=== PATIENT | female | born 1945 | race Caucasian/White ===

== ENCOUNTER → 2016-05-12 | Day surgery (SDC) | payer MEDICARE, OTHER ==
[~2016-05-12] MED LIST: ADVAIR 250-501 EACH INH; ALBUTEROL MININEB NEB; ALEVE220 M1 PO; AMBIEN10 MG PO; ASPIRIN EC650 MG PO; ASPIRIN EC81 M1 PO; ASPIRIN81 M1 PO; ASPIRINEC PO; BENADRYL PO; BENADRYL25 M3 PO; CALCIUM + VITA1 EACH PO; CINNAMON ALPHA1 EACH PO; CO Q-1010 MG PO; COQ-1010 MG PO; DIABETA5 M1 PO; DIPHENHYDRAMINE50 M1 PO; FLOMAX0.4 M1 PO; FLUOXETINE HCL40 MG PO; FORTAMET1000 MG/B1 PO; GARCINIA CAMBO1 EACH PO; GLUCOPHAGE500 M1; GLUCOPHAGE500 M1 PO; GLUCOSAMINE & C1 CAP PO; GLUCOSAMINE-CHO1 CA1 PO; GLYBURIDE PO; GLYNASE PO; GREEN COFFEE B400 MG PO; JANUVIA PO; LANTUS100 U/ML SUBQ; LOZOL PO; MAG GLYCINATE100 MG PO; MELATONIN3 MG PO; MELOXICAM15 MG PO; METFORMIN PO; MICRONASE5 M2 PO; MOBIC15 MG PO; MULTI VITAMIN1 EACH PO; NEURONTIN300 MG PO; OSTEO BI-FLEX1 EAC1 PO; OSTEO BI-FLEX1 EAC2 PO; PRAVACHOL20 MG PO; PRINIVIL40 MG PO; PROTONIX PO; PROZAC40 M1 PO; PROZAC40 MG PO; SINGULAIR PO; SINGULAIR4 MG/PACKE PO; TRAMADOL HCL50 M1 PO; TRAMADOL HCL50 M2 PO; VITAMIN D34000 UNIT PO; VITAMIN D400 UNI1 PO; ZESTRIL40 MG PO
--- NOTE | ~2016-05-12 | OR ---
Unit #: [id number] #: [id number] Patient: HALEY COVARRUBIAS [id number] [address] [address] [id number] O MR#: [id number] NAME: HALEY COVARRUBIAS ROOM: Date of Procedure: 05/12/2016 Admission Date: 05/12/2016 Surgeon: Jorge Vega M.D. : 1945 Attending Physician: Jorge Vega M.D. Primary Care Physician: Generic Doctor Not In System OPERATIVE REPORT REFERRING PHYSICIAN Primary care. SERVICE PROVIDED 1. Therapeutic lumbar epidural injection. 2. Fluoroscopy of the lumbosacral spine. 3. Intravenous sedation to facilitate the above. PREOPERATIVE DIAGNOSES 1. Degenerative disk disease, L4-5, with left lumbar radiculopathy. 2. Hypertension, asthma, non-insulin dependent diabetes mellitus, depression and anxiety disorder. POSTOPERATIVE DIAGNOSES 1. Degenerative disk disease, L4-5, with left lumbar radiculopathy. 2. Hypertension, asthma, non-insulin dependent diabetes mellitus, depression and anxiety disorder. PROCEDURE PERFORMED Lumbar epidural steroid injection using fluoroscopy. FOLLOW-UP/REVIEW OF SYSTEMS/PHYSICAL EXAM Ms. Covarrubias is here for a lumbar epidural steroid injection. She has responded well to interventional treatment. She continues to have left lumbar radiculopathy. She has no medical contraindication to the procedure that was performed as follows with her consent. INDICATIONS/COMMENTS AND CONSENTS/STATEMENT OF MEDICAL NECESSITY The patient's current medications, allergies and vital signs are documented in the nursing assessment. The risks and benefits of the intervention were discussed with the patient in detail including but not limited to infection, bleeding, meningitis, steroid induced side-effects, nerve damage, paralysis, spinal headaches, neuritis, persistent or worsening pain. The patient wishes to proceed. A separate pain assessment is also in the chart. I have reviewed all of this and have reviewed this with the patient. A current History and Physical is also attached. DESCRIPTION OF PROCEDURE 1. Monitoring and positioning: After appropriate discussions it was decided to perform the procedure under local anesthesia with supplemental intravenous sedation. Vital signs were monitored in pre, intra and post-procedure phase. Monitoring included EKG, non-invasive BP, pulse Unit #: [id number] #: [id number] Patient: HALEY COVARRUBIAS oximetry, and temperature. These are documented and were stable. Appropriate supports and restraints were used. 2. Sedation: A total of 2 mg of Versed and 100 mcg of fentanyl was administered. 3. Lumbar epidural injection/fluoroscopy: The patient was placed in the sitting position. Positional supports were used. Fluoroscopy of the lumbar spine was performed. Sterile prep and drape with carried out with ChloraPrep. Local anesthesia was with infiltrated with 3 mL of preservative-free 1% Lidocaine. Once anesthesia was established, a 22-gauge Tuohy epidural needle was inserted at the L4-5 level epidurally, using a left interlaminar approach, loss of resistance to saline technique, and with fluoroscopic guidance. Needle placement tested negative for subarachnoid and intravascular placement. An intra-operative epidurogram was now performed. Intra-operative epidurogram: 1 mL of Isovue-M300 was injected through the epidural needle under continuous fluoroscopy. The dye was seen to spread to L4 in the cephalad direction, and to L5 in the caudal direction. The spread of the dye was uniform. 1 mL of preservative-free normal saline was used to irrigate the dye off the epidural space. There was no intravascular or intrathecal spread of contrast. A lumbar epidural steroid injection was now performed using a total of 3 mL of solution containing 0.2% bupivacaine in 2 mL followed by 80 mg of Depo-Medrol in 2 mL. Fluoroscopic imaging confirmed spread of medication. The needle was then removed intact. The skin was washed off. Prep solution and dressings were applied at the injection site. The patient tolerated the procedure well. The patient was then observed in the recovery area for 30 minutes. The patient will be monitored for her blood sugars closely over the next few days and titrate her medications accordingly. RESULTS The patient had a consistent block with the dose of local anesthetic used. Pain relief was satisfactory. There were no complications or side effects. DISCHARGE CONDITION 1. Patient was discharged in satisfactory condition accompanied by a family member. 2. Post-procedure instructions were given. PLAN The patient will return to the clinic in 2 months for re-assessment and office visit. I thank the patient's referring physician for the opportunity to participate in the care of this patient. Please do not hesitate to call for any questions regarding this patient's pain management. Dictated by... Sharmaine Muhammad TD: 05/13/2016 02:45 Unit #: [id number] #: [id number] Patient: HALEY COVARRUBIAS Bernice JOB #: [id number] OPERATIVE REPORT Page 1 of 1 X Jorge Vega MD PROCEDURE OPERATIVE NOTE
== END | disposition home or self-care (01) ==
LOC: CCSC 07:18
PROVIDERS: Anesthesiology
PROC: 3E0R3BZ Introduction of Anesthetic Agent into Spinal Canal, Percutaneous Approach (ICD-10-PCS; 2016-05-12)
PROC: 3E0R33Z Introduction of Anti-inflammatory into Spinal Canal, Percutaneous Approach (ICD-10-PCS; principal; 2016-05-12 08:00)
DX: M51.16 Intervertebral disc disorders with radiculopathy, lumbar region (principal); M47.26 Other spondylosis with radiculopathy, lumbar region; I10 Essential (primary) hypertension; J45.909 Unspecified asthma, uncomplicated; E11.9 Type 2 diabetes mellitus without complications; Z79.84 Long term (current) use of oral hypoglycemic drugs; F32.9 Major depressive disorder, single episode, unspecified; F41.9 Anxiety disorder, unspecified; K21.9 Gastro-esophageal reflux disease without esophagitis; Z79.899 Other long term (current) drug therapy; L30.9 Dermatitis, unspecified; Z87.442 Personal history of urinary calculi; Z90.710 Acquired absence of both cervix and uterus; Z98.890 Other specified postprocedural states; Z88.0 Allergy status to penicillin; Z88.5 Allergy status to narcotic agent; Z88.8 Allergy status to other drugs, medicaments and biological substances
CPT/HCPCS: 82947; J1040; J2250; J3010

== ENCOUNTER → 2016-06-09 | Outpatient (CLI) | payer MEDICARE, OTHER ==
--- NOTE | ~2016-06-09 | CT4 ---
[facility] A Service of [facility] & [facility] RADIOLOGY TEXT RESULTS PATIENT: HALEY COVARRUBIAS LOCATION: [facility] : 43 UNIT #: [id number] AGE: [address]: Ricardo Mitchell MD SEX: F ORDER DR: [id number] [facility] [address]. [place], [place] [address] [id number] O MR#: [id number] Acc #: [id number] NAME: HALEY COVARRUBIAS : 1945 SEX: F STUDY DATE/TIME: 06/09/2016 12:55 UNIT: [facility] ROOM: STUDY DESCRIPTION: CT Abd and Pelv Wo Cont Attending Physician: Ricardo Mitchell M.D. Referring Physician: Ricardo Mitchell M.D. Ordering Physician: Ricardo Mitchell M.D. Primary Care Physician: Neha Mar MEDICAL IMAGING REPORT This report is preliminary unless electronic signature is present EXAM CT abdomen and pelvis INDICATION Intermittent abdominal pain for 1 week. Right-sided abdominal pain. Renal calculi. TECHNIQUE CT of the abdomen and pelvis without contrast. Coronal and sagittal reconstructions were obtained. This CT examination was performed with one or more of the following radiation dose reduction techniques: automatic exposure control, adjustment of mA and/or kV according to patient size, and iterative reconstruction. COMPARISON CT abdomen and pelvis 08/03/2015. FINDINGS ABDOMEN: A 3 mm nonobstructing calculus is identified in the lower pole right kidney. There is no hydronephrosis or ureteral calculi. Noncontrast evaluation of the remaining solid abdominal organs are within normal limits. The patient is status post cholecystectomy. Borderline enlargement of the common bile duct measures 8-9 mm, unchanged from the 2016 comparison. The bowel is not dilated. No enlarged retroperitoneal or mesenteric lymph nodes. There are occasional left-sided colonic diverticula. No diverticulitis. The appendix is not clearly identified and may be surgically absent. There is no inflammation around the cecum. The abdominal aorta is normal in caliber. There is generalized atrophy of the anterior abdominal wall musculature. There is laxity of the anterior abdominal wall, however no discrete hernia. STS. [facility] A Service of [facility] & [facility] RADIOLOGY TEXT RESULTS PATIENT: HALEY COVARRUBIAS LOCATION: [facility] : [birth year] UNIT #: [id number] AGE: [address]: Ricardo Mitchell MD SEX: F ORDER DR: PELVIS: Bladder is decompressed. The uterus and ovaries are presumed to be surgically absent. No enlarged pelvic or inguinal lymph nodes. No acute osseous abnormalities. IMPRESSION 1. Nonobstructing right renal calculus. No hydronephrosis or ureteral calculi. 2. Colonic diverticulosis. Dictated by... Maged Arias M.D. THIS IS AN ELECTRONICALLY VERIFIED REPORT Maged Arias M.D. at 06/10/2016 9:41 AM KOSTA/chance TD: 06/10/2016 07:55 JOB #: [id number] MEDICAL IMAGING REPORT Page 1 of 1 COPY
--- NOTE | ~2016-06-09 | CR7 ---
[facility] A Service of [facility] & [facility] RADIOLOGY TEXT RESULTS PATIENT: HALEY COVARRUBIAS [facility] : [facility] UNIT #: [id number] AGE: [address]: Ricardo Mitchell MD SEX: F ORDER DR: [id number] [facility] [address] [place], [place] [address] [id number] O MR#: [id number] Acc #: [id number] NAME: HALEY COVARRUBIAS : 1945 SEX: F STUDY DATE/TIME: 06/09/2016 12:33 [facility] ROOM: STUDY DESCRIPTION: CR Abdomen Single AP View Attending Physician: Ricardo Mitchell M.D. Referring Physician: Ricardo Mitchell M.D. Ordering Physician: Ricardo Mitchell M.D. Primary Care Physician: Neha Mar MEDICAL IMAGING REPORT This report is preliminary unless electronic signature is present EXAM AP abdomen INDICATIONS 71-year-old female with right-sided flank pain since August of last year. COMPARISON CT abdomen and pelvis from same day FINDINGS The CT scan demonstrates a tiny stone in the lower pole of the right kidney which possibly may be apparent on the x-ray located to the right of the upper portion of L3. This may also be stool artifact. Please refer to the CT scan for further details. Degenerative changes lumbar spine. IMPRESSION The patient has a known stone in the lower pole of the right kidney best demonstrated on a CT scan from today. It is possibly visualized on this study located to the right of the upper endplate of L3, but this could also be stool artifact. Dictated by... Jalen Guerrero M.D. THIS IS AN ELECTRONICALLY VERIFIED REPORT Jalen Guerrero M.D. at 06/10/2016 10:02 AM ARS/to TD: 06/09/2016 17:51 JOB #: [id number] MEDICAL IMAGING REPORT Page 1 of 1 COPY
== END | disposition home or self-care (01) ==
LOC: CCAT 12:06
DX: N20.0 Calculus of kidney (principal); K57.30 Diverticulosis of large intestine without perforation or abscess without bleeding
CPT/HCPCS: 74000; 74176